=== PATIENT | male | born 1975 | race Caucasian/White ===

== ENCOUNTER 2023-12-12 12:41 | Emergency (ER) | payer OTHER ==
[~2023-12-12] VITALS: Ht 185.4 cm; Wt 127.2 kg
[2023-12-12 13:19] VITALS: BP 167/120; PULSE 112; RESP 16; TEMP 97.8; O2SAT 96
[2023-12-12] MEDS: OXYCODONE W/ ACETAMINOPHEN 5/325MG TABLET PO ONE (13:58)
[2023-12-12] MEDS ORDERED: AUG875T PO (14:49)
[2023-12-12] MEDS: TETANUS-DIPTH-ACEL PERTUSSIS 0.5ML SYR Tdap IM ONE (14:58)
== END 2023-12-12 15:06 | disposition home or self-care (01) ==
LOC: EDBD 12:41 → ER 12:48
DX: S16.1XXA Strain of muscle, fascia and tendon at neck level, initial encounter (principal); S39.012A Strain of muscle, fascia and tendon of lower back, initial encounter; S80.211A Abrasion, right knee, initial encounter; S80.212A Abrasion, left knee, initial encounter; S61.031A Puncture wound without foreign body of right thumb without damage to nail, initial encounter; V89.2XXA Person injured in unspecified motor-vehicle accident, traffic, initial encounter; Y93.89 Activity, other specified; Y92.89 Other specified places as the place of occurrence of the external cause; Y99.8 Other external cause status
CPT/HCPCS: 72040; 72100; 73130; 90471; 90715